=== PATIENT | male | born 1955 | race Caucasian/White ===

== ENCOUNTER 2020-02-11 11:26 | Outpatient (CLI) | payer OTHER, SELFPAY ==
--- NOTE | ~2020-02-11 | XR_ITS ---
EXAMINATION: XR_CERV2-3V_CR EXAM DATE: 02/11/2020 11:47 INDICATION: Headache, right shoulder pain, chronic. TECHNIQUE: Cervical spine frontal, lateral, lateral swimmers, and open-mouth odontoid projections. There is no prior study for comparison. FINDINGS: The vertebral bodies are aligned in the AP dimension. There is moderate disc disease C4-7. There is mild to moderate cervical arthropathy, with evidence of some neural foraminal stenosis at C 5-6 and 6-7. The odontoid process is intact. The lateral masses of C1 line up with C2. Prevertebral soft tissue and pre-dens space are within normal limits. IMPRESSION: 1. Moderate lower cervical disc disease. 2. Mild to moderate arthropathy. Reviewed, dictated and finalized at location A.
== END 2020-02-11 11:27 | disposition home or self-care (01) ==
LOC: ANHIMG 11:28
PROVIDERS: PCP Internal Medicine; Visit Provider Internal Medicine
DX: R51 Headache (principal); M25.511 Pain in right shoulder; G89.29 Other chronic pain; M50.321 Other cervical disc degeneration at C4-C5 level; M48.02 Spinal stenosis, cervical region
CPT/HCPCS: 72040

== ENCOUNTER 2020-02-12 10:03 | Outpatient (CLI) | payer OTHER, SELFPAY ==
--- NOTE | 2020-02-26 12:24 | WPDHOLTEREM ---
Holter/Event Monitor Holter/Event Monitor Date of procedure: 02/22/20 Procedure Type: 48 hour holter monitor Indications: Palpitations, HTN Conclusion: 1. 48 hours holter monitor on 02/22/20. 2. Underlying rhythm is sinus rhythm. HR range 49-113 bpm; average HR 69 bpm. 3. There are 6 premature supraventricular complexes and 1 supraventricular couplet. No supraventricular tachycardia. 4. There are 137 premature ventricular complexes and 148 ventricular bigeminy. No ventricular tachycardia. 5. No sinoatrial or atrioventricular blocks. No significant pauses greater than 2 seconds. 6. Patient reports symptoms of elevated heart rate which demonstrate sinus rhythm, HR range 63-71 bpm.
== END 2020-02-12 10:04 | disposition home or self-care (01) ==
PROVIDERS: PCP Internal Medicine; Visit Provider Internal Medicine
DX: R00.2 Palpitations (principal)
CPT/HCPCS: 93225; 93226

== ENCOUNTER 2020-05-23 02:35 | Outpatient (CLI) | payer OTHER, SELFPAY ==
[2020-05-23 18:57] LABS: SARS-CoV-2 RNA PCR Negative
== END 2020-05-23 02:36 | disposition home or self-care (01) ==
LOC: ANHCOVIDDT 02:36
PROVIDERS: PCP Internal Medicine; Visit Provider Internal Medicine Gastroenterology
DX: Z01.812 Encounter for preprocedural laboratory examination (principal); Z11.59 Encounter for screening for other viral diseases
CPT/HCPCS: 87635; C9803; U0003

== ENCOUNTER 2020-05-26 00:49 | Day surgery (SDC) | payer OTHER, SELFPAY ==
[2020-05-19 10:44] VITALS: BMI 26.1
[2020-05-26 06:23] VITALS: BMI 26.3
[2020-05-26] MEDS: LACTATED RINGERS 1,000 ML 150 ML IV CONT (06:34)
[2020-05-26 06:35] VITALS: BP 118/85; PULSE 67; RESP 16; TEMP 36.4; O2SAT 98
--- NOTE | 2020-05-26 06:58 | PM.HPGS ---
History of Present Illness History of Present Illness Consent: Risks, benefits, and alternatives have been discussed and questions answered. Patient agrees to proceed with procedure. Chief complaint: Neoplasm Screening/ Hx Colon Polyps Narrative: Domo Edward is a 65 year old W male For referred for screening colonoscopy secondary history of colonic polyps. However last colonoscopy only hyperplastic polyps were noted. There is no family history of colon polyps or colon cancer. The patient is asymptomatic. No previous surgical procedure. Patient is on no medications. Patient is a nonsmoker. [facility] Past Medical History Medical History Abnormal finding of blood chemistry, unspecified Anxiety BMI 26.0-26.9,adult BMI 27.0-27.9,adult Cervicalgia Colon cancer screening Encounter for preventive health examination Encounter for special screening examination for neoplasm of prostate Encounter to establish care Hx of colonic polyps Hyperlipidemia On jail drug therapy Palpitations Persistent headaches Right shoulder pain Tinnitus Family History Family History Mother Ovarian cancer Father Emphysema, unspecified Schizophrenia Social History Social History Smoking status: Former smoker Smoking end date: 10/17/84 Alcohol intake: current Gender identity (if verbalized by the patient): Male Meds Home Medications and Allergies Home Medications Medication Instructions Recorded Confirmed Type No Home Medications 05/19/20 History Allergies Allergy/AdvReac Type Severity Reaction Status Date / Time No Known Allergies Allergy Verified 05/26/20 06:21 Vital Signs Vital Signs - 24 hr 05/26/20 06:35 Temperature 36.4 C L Pulse Rate 67 Respiratory Rate 16 Blood Pressure 118/85 Pulse Oximetry 98 Exam Const: Orientation/consciousness: patient oriented x3 Resp: Auscultation: clear to auscultation bilaterally Cardio: Rate: regular rate Rhythm: regular rhythm Heart sounds: no murmurs GI: GI Palp: Yes Soft to palpation, No Tenderness to palpation present (GI), Yes No hepatosplenomegaly present and No Palpable mass present Auscultation: normal bowel sounds Neuro: General: patient oriented x3 and no focal motor deficits Extrem: General: no pedal edema Assessment and Plan Additional Plan Screening colonoscopy secondary history of colonic polyps
--- NOTE | 2020-05-26 07:06 | P.PNAN_ITS ---
Anes - Initial Pre Proc Eval Procedure: Operation Date: 05/26/20 07:30 Proposed Procedures p Screening Colonoscopy - Greg Cabral MD Date/Time: 05/26/20 07:06 Surgeon: Greg Cabral MD Pre Op Diagnosis: Neoplasm Screening/ Hx Colon Polyps Patient Data Age: 65 Gender: M Height: 5 ft 11 in Weight: 85.7 kg Last Vital Signs Temp 97.5 F L 05/26/20 06:35 Pulse 67 05/26/20 06:35 Resp 16 05/26/20 06:35 BP 118/85 05/26/20 06:35 Pulse Ox 98 05/26/20 06:35 Allergies Allergy/AdvReac Type Severity Reaction Status Date / Time No Known Allergies Allergy Verified 05/26/20 06:21 Home Medications Medication Instructions Recorded Confirmed Type No Home Medications 05/19/20 History Patient hx anesthesia problems: none Family hx anesthesia problems: none PMFSH Past Medical History Medical History Abnormal finding of blood chemistry, unspecified Anxiety BMI 26.0-26.9,adult BMI 27.0-27.9,adult Cervicalgia Colon cancer screening Encounter for preventive health examination Encounter for special screening examination for neoplasm of prostate Encounter to establish care Hx of colonic polyps Hyperlipidemia On intermediate drug therapy Palpitations Persistent headaches Right shoulder pain Tinnitus Family History Family History Mother Ovarian cancer Father Emphysema, unspecified Schizophrenia Social History Social History Smoking status: Former smoker Smoking end date: 10/17/84 Alcohol intake: current Gender identity (if verbalized by the patient): Male Anes - Eval Final PreProcedure Day of Procedure 05/26/20 07:06 Patient weight: overweight Heart: regular rate and rhythm Lungs: clear to auscultation Airway: Mallampati scale class II Neurological: alert and oriented Last oral intake: >/= 8 hours ASA classification: II Emergent: no Anesthetic plan: proceed Anesthesia type and monitoring: general GIVS and standard monitoring Informed Consent: The patient's anesthetic plan and its attendant risks and benefits were discussed with the patient/family/POA. Questions were solicited and answers provided to the satisfaction of the patient/family/POA.
[2020-05-26 07:44] VITALS: BP 99/61; PULSE 62; RESP 15; O2SAT 95
[2020-05-26 07:54] VITALS: BP 98/62; PULSE 62; RESP 14; O2SAT 96
[2020-05-26 08:04] VITALS: BP 108/63; PULSE 59; RESP 19; O2SAT 96
== END 2020-05-26 08:25 | disposition home or self-care (01) ==
PROVIDERS: PCP Internal Medicine; Visit Provider Internal Medicine Gastroenterology
PROC: 0DJD8ZZ Inspection of Lower Intestinal Tract, Via Natural or Artificial Opening Endoscopic (ICD-10-PCS; CPT 45378; principal; 2020-05-26 07:30)
DX: Z12.11 Encounter for screening for malignant neoplasm of colon (principal); K57.30 Diverticulosis of large intestine without perforation or abscess without bleeding; K64.8 Other hemorrhoids; Z86.010 Personal history of colon polyps; Z87.891 Personal history of nicotine dependence
CPT/HCPCS: G0105; 87635; C9803; J2704; J7120; U0003

== ENCOUNTER 2020-07-02 12:30 | Outpatient (CLI) | payer OTHER, SELFPAY ==
--- NOTE | ~2020-07-02 | CT_ITS ---
EXAMINATION: CT abdomen pelvis wo con DATE: 07/02/2020 14:04 INDICATION: Lower abdomen pain for days TECHNIQUE: Computed tomography (CT) of the abdomen and pelvis was performed without intravenous contr ast. The dose-length product was 490.65 mGy-cm. Automated exposure control and iterative reconstructi on technique were employed. COMPARISON: None. FINDINGS: Lung bases are unremarkable. Heart size normal. No significant pleural or pericardial effus ion. There are cardiophrenic angle lymph nodes on the left, largest measuring 1.6 cm, image 24. Gallstones. The liver, spleen, pancreas, adrenal glands and kidneys are unremarkable. Nonobstructive bowel gas pattern. Normal appendix. Prostate gland is enlarged. There is a punctate midline calcifica tion measuring 2 mm, image 183. Cannot exclude stone in the prostatic urethra. Bladder is unremarkabl e. Moderate lumbar spondylosis. Tiny fat-containing umbilical hernia. No significant vascular abnorma lity. IMPRESSION: 1. Possible 2 mm stone in the prostatic urethra. 2: Left cardiophrenic angle lymph nodes, likely reactive. 3: Cholelithiasis. Reviewed, dictated and finalized at location B.
[2020-07-02 12:51] LABS: Basophils Percent Auto 0.7 % (0.2-1.2); Eosinophils Absolute Auto 0.3 K/mm3 (0-0.3); Eosinophils Percent Auto 4.4 % (0-4.4); Hematocrit 42.7 % (42.0-52.0); Hemoglobin 14.7 g/dL (14.0-18.0); Immature Granulocyte Absolute 0.01 K/mm3 (0.00-0.031); Immature Granulocyte Percent A 0.2 % (0-0.5); Lymphocytes Absolute Auto 0.86 K/mm3 (0.9-3.2); Lymphocytes Percent Auto 14.7 % (18.3-44.2); Mean Corpuscular HGB Conc 34.4 g/dl (32-36); Mean Corpuscular Hemoglobin 31.8 pg (26-34); Mean Corpuscular Volume 92.4 fl (80-100); Mean Platelet Volume 8.1 fl (7.4-10.4); Monocytes Absolute Auto 0.6 K/mm3 (0.1-0.6); Monocytes Percent Auto 9.6 % (2.6-8.5); Neutrophils Absolute Auto 4.1 K/mm3 (1.3-6.7); Neutrophils Percent Auto 70.4 % (45.5-73.1); Platelet Count Result 233 k/mm3 (150-375); Red Blood Count 4.62 M/mm3 (4.6-6.20); Red Cell Distribution Width 12.4 % (11.5-14.5); White Blood Count 5.9 K/mm3 (4.5-10.0)
[2020-07-02 12:53] LABS: Add Urine Microscopic? NO; Appearance Urine Clear (Clear); Bilirubin Urine Negative (Negative); Blood Urine Negative (Negative); Color Urine Straw (Yellow); Glucose Urine UA Negative (Negative); Ketones Urine Negative (Negative); Leukocyte Esterase Ur Negative LEU/UL (NEGATIVE); Nitrate Urine Negative (Negative); Protein Urine Negative (Negative); Specific Grav Ur 1.008 (1.001-1.035); Urobilinogen Urine Negative mg/dL (<2.0)
[2020-07-02 13:06] LABS: Anion Gap 2 mmol/L (8-16); Blood Urea Nitrogen 13 mg/dL (9-20); Calcium 9.2 mg/dL (8.4-10.2); Carbon Dioxide 32 mmol/L (22-30); Chloride 100 mmol/L (98-107); Estimated Glomerular Filt Rate > 60; Glucose 90 mg/dL (75-110); Potassium 4.6 mmol/L (3.4-5.0); Sodium 134 mmol/L (137-145)
== END 2020-07-02 12:31 | disposition home or self-care (01) ==
PROVIDERS: PCP Internal Medicine; Visit Provider Internal Medicine
DX: R10.32 Left lower quadrant pain (principal); R30.0 Dysuria; R59.0 Localized enlarged lymph nodes; K80.20 Calculus of gallbladder without cholecystitis without obstruction
CPT/HCPCS: 36415; 74176; 80048; 81003; 85025; 87086

== ENCOUNTER → 2021-08-04 09:24 | Outpatient (CLI) | payer OTHER, SELFPAY ==
[2021-08-05 19:26] LABS: SARS-CoV-2 RNA PCR Negative
== END ==
PROVIDERS: PCP Internal Medicine; Visit Provider Internal Medicine
DX: Z20.822 Contact with and (suspected) exposure to COVID-19 (principal); R43.2 Parageusia
CPT/HCPCS: C9803; U0003; U0005

== ENCOUNTER → 2021-08-25 04:07 | Outpatient (CLI) | payer OTHER, SELFPAY ==
[2021-08-25 16:54] LABS: SARS-CoV-2 RNA PCR Negative
== END ==
PROVIDERS: PCP Internal Medicine; Visit Provider Internal Medicine
DX: R05.9 Cough, unspecified (principal); R43.2 Parageusia; Z20.822 Contact with and (suspected) exposure to COVID-19
CPT/HCPCS: C9803; U0003; U0005

== ENCOUNTER → 2021-10-13 02:33 | Outpatient (CLI) | payer OTHER, SELFPAY ==
[2021-10-14 03:58] LABS: SARS-CoV-2 RNA PCR Negative
== END ==
PROVIDERS: PCP Internal Medicine; Visit Provider Internal Medicine
DX: Z20.822 Contact with and (suspected) exposure to COVID-19 (principal)
CPT/HCPCS: C9803; U0003; U0005

== ENCOUNTER 2023-01-04 09:30 | Outpatient (CLI) | payer MEDICARE, OTHER, SELFPAY ==
--- NOTE | ~2023-01-04 | US_ITS ---
EXAMINATION: US soft tissue pelvic INDICATION: Lower abdominal pain TECHNIQUE: Targeted ultrasound is performed in the area of clinical concern. COMPARISON: None available FINDINGS: No sonographic correlate is identified for the patient's reported pain. No sonographically detected abnormality is seen. IMPRESSION: 1. No specific sonographic correlate is identified for the reported palpable abnormality of concern. Further evaluation at this time should be based on clinical assessment. Continued follow-up physical examination is recommended. Reviewed, dictated and finalized at location L. IMPRESSION: 1. No specific sonographic correlate is identified for the reported palpable ab normality of concern. Further evaluation at this time should be based on clinic al assessment. Continued follow-up physical examination is recommended.
--- NOTE | ~2023-01-04 | US_ITS ---
Limited Abdominal Sonogram: Real-time sonographic imaging of the right upper quadrant was performed. Clinical History: Abdominal pain Findings: The liver appears normal with no evidence of mass lesion or bile duct dilatation. Main por james vein demonstrates normal direction of flow. The gallbladder is completely filled with shadowing s tones. No definite gallbladder wall thickening. The common bile duct measures 3 mm. The visualized a srikanth is unremarkable. Pancreas obscured by bowel gas shadowing. Impression: Cholelithiasis. Reviewed, dictated and finalized at location M. Impression: Cholelithiasis.
== END 2023-01-04 09:31 ==
LOC: MICIMG 09:31
PROVIDERS: PCP Internal Medicine; Visit Provider Internal Medicine
DX: R10.9 Unspecified abdominal pain (principal); K80.20 Calculus of gallbladder without cholecystitis without obstruction
CPT/HCPCS: 76705; 76857

== ENCOUNTER 2023-01-07 07:47 | Outpatient (CLI) | payer MEDICARE, OTHER, SELFPAY ==
--- NOTE | ~2023-01-07 | NM_ITS ---
EXAMINATION: NM hepatobiliary wo pharm DATE: 01/07/2023 10:32 INDICATION: Gallstones COMPARISON: Ultrasound dated 01/04/2023 TECHNIQUE: 4.92 mCi Tc-99m mebrofenin (Choletec) was administered intravenously. Scintigraphic image s of the abdomen were obtained for one hour. At the 1 hour time point, the patient drank 8 oz Ensure, and imaging was continued for 60 minutes. Gallbladder ejection fraction was calculated by the techno logist. FINDINGS: There is normal clearance of radiotracer from the blood pool. There is homogeneous tracer u ptake by the liver. Activity progresses to the bowel and gallbladder. The gallbladder ejection fract ion (GBEF) is 93%. Note that with this technique, normal GBEF >= 33%. IMPRESSION: 1. Normal hepatobiliary scan Reviewed, dictated and finalized at location A.
== END 2023-01-07 07:48 | disposition home or self-care (01) ==
PROVIDERS: PCP Internal Medicine; Visit Provider Internal Medicine
DX: K80.20 Calculus of gallbladder without cholecystitis without obstruction (principal)
CPT/HCPCS: 78226; A9537

== ENCOUNTER 2023-01-27 14:21 | Outpatient (CLI) | payer MEDICARE, OTHER, SELFPAY ==
--- NOTE | ~2023-01-27 | CT_ITS ---
EXAMINATION: CT abdomen pelvis w con INDICATION: Right lower quadrant pain TECHNIQUE: Computed tomographic images of the abdomen and pelvis were obtained after the administrati on of 100 cc of Omnipaque 350 intravenous contrast. The dose-length product (DLP) was 455.07 mGy-cm. Automated exposure control and iterative reconstruction technique were employed. COMPARISON: 07/02/2020 FINDINGS: Minimal dependent atelectasis is present in the lung bases. The heart size is normal. Again noted are chronic lymph nodes at the left cardiophrenic angle. Stones are present in the nondistende d gallbladder. The liver, spleen, and adrenal glands are normal. There is a 7 mm cystic lesion in the body of the pancreas on image 45. Cysts of the kidneys measure up to 8 mm on the right. No pathologi pam enlarged abdominal or pelvic lymph nodes are identified. No free intraperitoneal gas or evidenc e of bowel obstruction. The appendix is normal. No pathologically enlarged abdominal or pelvic lymph nodes are identified. No free intraperitoneal gas or evidence of bowel obstruction. A moderate volume of colonic stool is present. There is an umbilical hernia containing fat. There is moderate to sever e lumbar spondylosis. IMPRESSION: 1. No CT correlate for the patient's symptoms. 2. Small cystic lesion in the body of the pancreas. The differential diagnosis includes pseudocyst, i ntraductal papillary mucinous neoplasm (IPMN), mucinous cystic neoplasm (MCN), and the less common se candy cystadenoma and neuroendocrine tumor. Correlate for history of pancreatitis. Follow-up pancreas protocol MRI or CT in one year is recommended. Reviewed, dictated and finalized at location F. IMPRESSION: 1. No CT correlate for the patient's symptoms. 2. Small cystic lesion in the body of the pancreas. The differential diagnosis includes pseudocyst, intraductal papillary mucinous neoplasm (IPMN), mucinous c ystic neoplasm (MCN), and the less common serous cystadenoma and neuroendocrine tumor. Correlate for history of pancreatitis. Follow-up pancreas protocol MRI or CT in one year is recommended.
[2023-01-27 14:52] LABS: Estimated Glomerular Filt Rate 60
== END 2023-01-27 14:22 | disposition home or self-care (01) ==
PROVIDERS: PCP Internal Medicine; Visit Provider Nurse Practitioner
DX: R10.31 Right lower quadrant pain (principal); K86.9 Disease of pancreas, unspecified
CPT/HCPCS: 74177; Q9967

== ENCOUNTER 2023-02-09 08:00 | Outpatient (CLI) | payer MEDICARE, OTHER, SELFPAY ==
--- NOTE | ~2023-02-09 | MR_ITS ---
EXAMINATION: MR MRCP wo/w con/w 3D wo ind DATE: 02/09/2023 09:06 INDICATION: Cystic lesion of the pancreas TECHNIQUE: Magnetic resonance imaging (MRI) of the abdomen was performed without and with intravenous contrast. Sequences included coronal T2-weighted SS-FSE ARC, coronal T2-weighted FS SS-FSE, coronal T2-weighted 2D FS FIESTA, Water:Coronal LAVA-Flex, sagittal T2-weighted SS-FSE ARC, axial SSFSE ARC, axial 3D DualEcho, axial DWI B=600, axial T1-weighted LAVA, FAT:Coronal LAVA-Flex, and coronal in and opposed phase LAVA-Flex. Thick-slab T2-weighted FRFSE-XL images were obtained for magnetic resonance cholangiopancreatography (MRCP). Maximum intensity projection 3-D reconstructions of the volumetric data were created by the technologist. Postcontrast sequences included a time course of axial T1-weig hted LAVA, FAT:Coronal LAVA-Flex, coronal in and opposed phase LAVA-Flex, and Water:Coronal LAVA-Flex . COMPARISON: CT, 01/27/2013 CONTRAST: Multihance, 17 cc FINDINGS: ABDOMEN MRI: There is a 10 mm x 8 mm cystic lesion in the body of the pancreas which appears to commu nicate with the main pancreatic duct. In addition, there are smaller cystic lesions in the tail of th e pancreas which measure 7 mm and 6 mm without definite main pancreatic duct communication. No defini te enhancement is identified in either breast lesions after contrast administration. Multiple stones are present in the nondistended gallbladder. The liver, spleen, and adrenal glands are unremarkable. Cysts of the kidneys measure up to 11 mm on the left. There are no pathologically enlarged abdominal lymph nodes. A large volume of colonic stool is present. There is a perihilar nodule of the right low er lobe. ABDOMEN MRCP: There is no intrahepatic or extrahepatic biliary dilatation. There are no biliary stone s or stricture. The pancreatic duct is normal in caliber. IMPRESSION: 1. Cystic lesions of the pancreas as described above with differential as previously discussed. Follo w-up pancreas protocol CT or MRI in one year is recommended. 2. Indeterminate perihilar nodule of the right lower lobe. Dedicated CT of the chest is recommended. 3. Cholelithiasis without evidence of cholecystitis. Reviewed, dictated and finalized at location B. IMPRESSION: 1. Cystic lesions of the pancreas as described above with differential as previ ously discussed. Follow-up pancreas protocol CT or MRI in one year is recommend ed. 2. Indeterminate perihilar nodule of the right lower lobe. Dedicated CT of the chest is recommended. 3. Cholelithiasis without evidence of cholecystitis.
== END 2023-02-09 08:01 | disposition home or self-care (01) ==
LOC: ANHIMG 08:02
PROVIDERS: PCP Internal Medicine; Visit Provider Nurse Practitioner
DX: K86.2 Cyst of pancreas (principal); R91.1 Solitary pulmonary nodule; K80.20 Calculus of gallbladder without cholecystitis without obstruction
CPT/HCPCS: 74183; 76376; A9577

== ENCOUNTER 2023-02-16 00:50 | Day surgery (SDC) | payer MEDICARE, OTHER, SELFPAY ==
[2023-02-03 10:29] VITALS: BMI 25.9
--- NOTE | 2023-02-15 16:54 | PM.HPGS ---
History of Present Illness History of Present Illness Consent: Risks, benefits, and alternatives have been discussed and questions answered. Patient agrees to proceed with procedure. Chief complaint: belching, altered bowel habit Narrative: Domo Edward is a 67 year old male was referred for endoscopy because of persistent belching. For several weeks he has had abdominal bloating, indigestion as well as the burping. He cut out coffee. He noticed that complex carbohydrates like made goes make his symptoms worse. He has had some lower abdominal cramping. Recently he was given prescriptions for possible diverticulitis which did not help. Testing was done for celiac disease which was negative. He did have an ultrasound of the upper abdomen that showed gallstones but HIDA scan revealed a normal ejection fraction. He also has history of colon polyps. He had a polyp removed in 2013. A colonoscopy in 2017 to investigate rectal bleeding was remarkable for small internal hemorrhoids and a small tubular adenoma. His last colonoscopy which was 3 years ago was unremarkable. Review of Systems Review of Systems: All systems reviewed & are unremarkable except as noted in HPI and below PMFSH Past Medical History Medical History Abdominal distension Abdominal pain Abnormal finding of blood chemistry, unspecified Altered taste Anxiety Belching BMI 25.0-25.9,adult Cervicalgia Change in bowel habits Change in stool caliber Colon cancer screening Cough Diverticulosis DJD of both shoulders Dysuria Encounter for preventive health examination Encounter for routine adult health examination with abnormal findings Encounter for special screening examination for neoplasm of prostate Exposure to COVID-19 virus Follow up Gallstones Hx of adenomatous colonic polyps Hx of colonic polyps Hyperlipidemia Indigestion Kidney stone Left shoulder pain On [employer] drug therapy Palpitations Pancreatic cyst Persistent headaches Right shoulder pain Swelling of finger of right hand Tinnitus Umbilical hernia Vertigo Family History Family History Mother Ovarian cancer Father Emphysema, unspecified Schizophrenia Social History Social History Smoking packs per day: 0.5 Smoking cigarettes per day: 10.0 Years smoked: 10 Smoking pack-years: 5.00 Smoking status: Former smoker Tobacco type: cigarettes Second hand tobacco smoke exposure: No Smoking end date: 10/17/84 Alcohol intake: current Lack of Transportation: No Lack of Food: Never True Current Housing: I Have Housing Concerned About Future Housing: No Difficulty Paying Gas/Electric Bills: No Difficulty Paying for Meds: No Currently Unemployed: No Education: Bachelor's Degree Difficulty w/ Childcare or Family Care: No Living arrangements: with family Gender identity (if verbalized by the patient): Male Spiritual care concerns: No Meds Home Medications and Allergies Home Medications Medication Instructions Recorded Confirmed Type fish oil 1 cap BYMOUTH DAILY 12/30/22 02/16/23 History multivitamin (One Daily 1 tablet PO DAILY 12/30/22 02/07/23 History Multivitamin tablet) Allergies Allergy/AdvReac Type Severity Reaction Status Date / Time ciprofloxacin Allergy Intermediate Itching Verified 02/16/23 09:20 Exam Const: General: alert Orientation/consciousness: patient oriented x3 Resp: Auscultation: clear to auscultation bilaterally Cardio: Rhythm: regular rhythm GI: GI Palp: Yes Soft to palpation and No Tenderness to palpation present (GI) Neuro: General: patient oriented x3 Assessment and Plan Assessment and plan (1) Colon cancer screening: Code(s): Z12.11 - Encounter for screening for malignant neoplasm of colon Status: Acute Assess
--- NOTE | 2023-02-16 07:39 | WPDANESEPPF ---
Anes - Initial Pre Proc Eval Procedure: Operation Date: 02/16/23 10:45 Proposed Procedures p Esophagogastroduodenoscopy & Colonoscopy - Frederic Snider MD Date/Time: 02/16/23 07:39 Surgeon: Frederic Snider MD Pre Op Diagnosis: belching, altered bowel habit Patient Data Age: 67 Gender: M Height: 1.78 m Weight: 82 kg Allergies Allergy/AdvReac Type Severity Reaction Status Date / Time ciprofloxacin Allergy Intermediate Itching Verified 02/16/23 09:20 Home Medications Medication Instructions Recorded Confirmed Type fish oil 1 cap BYMOUTH DAILY 12/30/22 02/16/23 History multivitamin (One Daily 1 tablet PO DAILY 12/30/22 02/07/23 History Multivitamin tablet) Patient hx anesthesia problems: none Family hx anesthesia problems: none Results Review: All pre-operative results and documents have been reviewed as part of the pre-operative evaluation. [facility] Past Medical History Medical History (Updated 02/07/23 @ 07:25 by Iliana Cruz CMA) Abdominal distension Abdominal pain Abnormal finding of blood chemistry, unspecified Altered taste Anxiety Belching BMI 25.0-25.9,adult Cervicalgia Change in bowel habits Change in stool caliber Colon cancer screening Cough Diverticulosis DJD of both shoulders Dysuria Encounter for preventive health examination Encounter for routine adult health examination with abnormal findings Encounter for special screening examination for neoplasm of prostate Exposure to COVID-19 virus Follow up Gallstones Hx of adenomatous colonic polyps Hx of colonic polyps Hyperlipidemia Indigestion Kidney stone Left shoulder pain On [facility] drug therapy Palpitations Pancreatic cyst Persistent headaches Right shoulder pain Swelling of finger of right hand Tinnitus Umbilical hernia Vertigo Family History Family History Mother Ovarian cancer Father Emphysema, unspecified Schizophrenia Social History Social History Smoking packs per day: 0.5 Smoking cigarettes per day: 10.0 Years smoked: 10 Smoking pack-years: 5.00 Smoking status: Former smoker Tobacco type: cigarettes Second hand tobacco smoke exposure: No Smoking end date: 10/17/84 Alcohol intake: current Lack of Transportation: No Lack of Food: Never True Current Housing: I Have Housing Concerned About Future Housing: No Difficulty Paying Gas/Electric Bills: No Difficulty Paying for Meds: No Currently Unemployed: No Education: Bachelor's Degree Difficulty w/ Childcare or Family Care: No Living arrangements: with family Gender identity (if verbalized by the patient): Male Spiritual care concerns: No Anes - Eval Final PreProcedure Day of Procedure 02/16/23 07:39 Patient weight: overweight Heart: regular rate and rhythm Lungs: clear to auscultation Airway: Mallampati scale class II Neurological: alert and oriented Last oral intake: >/= 8 hours ASA classification: II Emergent: no Anesthetic plan: proceed Anesthesia type and monitoring: general GIVS and standard monitoring Results Review: All pre-operative results and documents have been reviewed as part of the pre-operative evaluation. Informed Consent: The patient's anesthetic plan and its attendant risks and benefits were discussed with the patient/family/POA. Questions were solicited and answers provided to the satisfaction of the patient/family/POA.
[2023-02-16 09:22] VITALS: BP 129/79; PULSE 64; RESP 18; TEMP 36.1; O2SAT 98
[2023-02-16] MEDS: LACTATED RINGERS 1,000 ML 150 ML IV CONT (09:32)
--- NOTE | 2023-02-16 10:12 | SUR.OPER ---
EGD START: 950; END: 953. COLONOSCOPY START: 958; END: 1010.
[2023-02-16 10:13] VITALS: BP 90/59; PULSE 53; RESP 14; O2SAT 97
[2023-02-16 10:23] VITALS: BP 96/62; PULSE 58; RESP 20; O2SAT 97
[2023-02-16 10:33] VITALS: BP 104/71; PULSE 50; RESP 17; O2SAT 99
== END 2023-02-16 10:50 | disposition home or self-care (01) ==
PROVIDERS: PCP Internal Medicine; Visit Provider Internal Medicine Gastroenterology
PROC: 0DJ08ZZ Inspection of Upper Intestinal Tract, Via Natural or Artificial Opening Endoscopic (ICD-10-PCS; CPT 43235; principal; 2023-02-16 10:45)
DX: Z12.11 Encounter for screening for malignant neoplasm of colon (principal); K57.30 Diverticulosis of large intestine without perforation or abscess without bleeding; K64.8 Other hemorrhoids; Z86.010 Personal history of colon polyps; R19.4 Change in bowel habit; K29.70 Gastritis, unspecified, without bleeding; Z87.891 Personal history of nicotine dependence
CPT/HCPCS: 43239; G0105; 87081; J2704; J7120

== ENCOUNTER 2023-09-10 16:21 | Emergency (ER) | payer MEDICARE, OTHER, SELFPAY ==
[2023-09-10 16:30] VITALS: BP 127/84; PULSE 72; RESP 16; TEMP 36.8; O2SAT 98
--- NOTE | 2023-09-10 16:33 | ED.WOUNDLAC ---
HPI - Wound/Laceration General Chief Complaint: Wound/Laceration Stated Complaint: right finger laceration Time Seen by Provider: 09/10/23 16:33 Source: patient, RN notes reviewed and old records reviewed Mode of arrival: ambulatory Limitations: no limitations History of Present Illness HPI narrative: [age] year presents to the [facility] with complaints a laceration/flap/partial avulsion to the tip of the right finger. Unknown last Tdap Bleeding controlled Ocpok-gaey-pneiezyi Onset (ago): minute(s) (30) Patient tetanus UTD: No Related Data Home Medications Medication Instructions Recorded Confirmed fish oil 1 cap BYMOUTH DAILY 12/30/22 09/10/23 multivitamin (One Daily 1 tablet PO DAILY 12/30/22 09/10/23 Multivitamin tablet) Allergies Allergy/AdvReac Type Severity Reaction Status Date / Time ciprofloxacin Allergy Intermediate Itching Verified 09/10/23 16:40 Review of Systems Review of Systems: All systems reviewed & are unremarkable except as noted in HPI and below Constitutional: Constitutional: Reports no additional constitutional complaints Eyes: Eyes: Reports no additional eye complaints ENT: Reports system reviewed and no additional complaints, except as documented Cardiovascular: Cardiovascular: Reports no additional cardiovascular complaints, Denies chest pain and Denies dyspnea Respiratory: Respiratory: Reports no additional respiratory complaints, Denies chest congestion, Denies cough and Denies dyspnea Gastrointestinal: Gastrointestinal: Reports no additional gastrointestinal complaints, Denies abdominal pain, Denies nausea and Denies vomiting Musculoskeletal: Musculoskeletal: Reports no additional musculoskeletal complaints Integumentary/Breasts: Skin/Breast: Reports as per HPI and Reports wounds Neurologic: Reports system reviewed and no additional complaints, except as documented Psychiatric: Psychiatric: Reports no additional psychiatric complaints Allergic/Immunologic: Allergic/Immunologic: Reports no additional allergic/immunologic complaints [facility] Past Medical History Medical History Abdominal distension Abdominal pain Abnormal finding of blood chemistry, unspecified Altered taste Anxiety Belching BMI 25.0-25.9,adult Cervicalgia Change in bowel habits Change in stool caliber Colon cancer screening Cough Diverticulosis DJD of both shoulders Dysuria Encounter for preventive health examination Encounter for routine adult health examination with abnormal findings Encounter for special screening examination for neoplasm of prostate Exposure to COVID-19 virus Follow up Gallstones Hx of adenomatous colonic polyps Hx of colonic polyps Hyperlipidemia Indigestion Kidney stone Left shoulder pain On alf drug therapy Palpitations Pancreatic cyst Persistent headaches Right shoulder pain Swelling of finger of right hand Tinnitus Umbilical hernia Vertigo Family History Family History Mother Ovarian cancer Father Emphysema, unspecified Schizophrenia Social History Social History Smoking packs per day: 0.5 Smoking cigarettes per day: 10.0 Years smoked: 10 Smoking pack-years: 5.00 Smoking status: Former smoker Tobacco type: cigarettes Second hand tobacco smoke exposure: No Smoking end date: 10/17/84 Alcohol intake: current Lack of Transportation: No Lack of Food: Never True Current Housing: I Have Housing Concerned About Future Housing: No Difficulty Paying Gas/Electric Bills: No Difficulty Paying for Meds: No Currently Unemployed: No Education: Bachelor's Degree Difficulty w/ Childcare or Family Care: No Living arrangements: with family Gender identity (if verbalized by the patient): Male Spiritual care concerns: No Comments At the time of my signatu
[2023-09-10] MEDS: TETANUS,DIPHTHERIA,AC PERTUSSIS ADULT (0.5 ML) BOOSTRIX IM (16:59)
== END 2023-09-10 17:15 | disposition home or self-care (01) ==
PROVIDERS: Emergency Provider Nurse Practitioner; PCP Internal Medicine
DX: S61.210A Laceration without foreign body of right index finger without damage to nail, initial encounter (principal); Z87.891 Personal history of nicotine dependence; Z23 Encounter for immunization; W45.8XXA Other foreign body or object entering through skin, initial encounter
CPT/HCPCS: 12001; 90471; 90715; 99213; G0463

== ENCOUNTER 2024-02-08 06:41 | Outpatient (CLI) | payer MEDICARE, OTHER, SELFPAY ==
--- NOTE | ~2024-02-08 | MR_ITS ---
EXAMINATION: MR MRCP wo/w con/w 3D wo ind DATE: 02/08/2024 08:04 INDICATION: Pancreatic cyst. Nausea. Bloating. TECHNIQUE: Magnetic resonance imaging (MRI) of the abdomen was performed without and with 15 mL Multi Donal intravenous contrast. Sequences included coronal T2-weighted FS FSE, coronal T2-weighted FSE, a xial T1-weighted LAVA, coronal FS FIESTA, axial dual-echo T1-weighted SPGR, coronal lava-FLEX, sagitt al T2-weighted FSE, axial T2-weighted FSE, and axial DWI. Thick-slab T2-weighted FSE images were obta ined for magnetic resonance cholangiopancreatography (MRCP). Maximum intensity projection 3-D reconst ructions of the volumetric data were created by the technologist. Postcontrast sequences included cor onal LAVA-flex and time course of axial T1-weighted LAVA. COMPARISON: MRCP 02/09/2023 FINDINGS: ABDOMEN MRI: The liver is normal. There are gallstones in the gallbladder, which is normal in size. T he spleen and adrenal glands are normal. There are 4 cystic lesions in the pancreas measuring up to 1 2 mm. There are cysts in the kidneys measuring up to 11 mm on the right. There are no dilated loops o f bowel. There are no pathologically enlarged lymph nodes. There is no free intraperitoneal fluid. ABDOMEN MRCP: The common duct is normal and measures 4 mm. No choledocholithiasis. IMPRESSION: 1. Four low-risk cystic lesions of the pancreas measuring up to 12 mm, stable from 02/09/2023. The dif ferential diagnosis includes pseudocyst, intraductal papillary mucinous neoplasm (IPMN), mucinous cys tic neoplasm (MCN), serous cystadenoma, and neuroendocrine tumor. Abdomen MRI without and with contra st is recommended in 2 years. 2. Cholelithiasis. No evidence of acute cholecystitis. Reviewed, dictated and finalized at location E. IMPRESSION: 1. Four low-risk cystic lesions of the pancreas measuring up to 12 mm, stable f rom 02/09/2023. The differential diagnosis includes pseudocyst, intraductal ara llary mucinous neoplasm (IPMN), mucinous cystic neoplasm (MCN), serous cystaden rm, and neuroendocrine tumor. Abdomen MRI without and with contrast is recomme nded in 2 years. 2. Cholelithiasis. No evidence of acute cholecystitis.
== END 2024-02-08 06:42 | disposition home or self-care (01) ==
PROVIDERS: PCP Internal Medicine; Visit Provider Nurse Practitioner
DX: K86.2 Cyst of pancreas (principal); K80.20 Calculus of gallbladder without cholecystitis without obstruction
CPT/HCPCS: 74183; 76376; A9577

== ENCOUNTER 2024-03-20 08:18 | Outpatient (CLI) | payer MEDICARE, OTHER, SELFPAY ==
--- NOTE | ~2024-03-20 | CT_ITS ---
CT Scan of the Chest without Contrast: Clinical Indication: Pulmonary nodule Technique: Contiguous sections were acquired throughout the chest without intravenous contrast. Dose reduction technique was used on this scan by utilizing automated exposure control and iterative recon struction technique. The dose-length product (DLP) was 92.38 mGy-cm. Findings: There is mediastinal lymphadenopathy, largest node likely in the precarinal region measuring 2.4 x 1. 3 cm in size. Multiple additional mildly enlarged lymph nodes are present. No aortic aneurysm. There is no evidence of pleural or pericardial effusion. 5 mm right upper lobe pulmonary nodule noted (axial image 44 and 45). Images through the upper abdomen reveal small gallstones. Impression: 5 mm right upper lobe pulmonary nodule. According to Fleischner Society criteria, for a low-risk mathew ent, no further follow-up required. For a high-risk patient, consider 12 month follow-up CT. Mediastinal lymphadenopathy, as detailed above, nonspecific. Findings could reflect inflammatory/reac tive lymph nodes versus the possibility of lymphoma or other metastatic disease. Correlate clinically . Comparison with any prior chest CTs would be useful to assess for chronicity of these nodes. Otherw ise, consider follow-up exam and/or tissue sampling as indicated. Reviewed, dictated and finalized at location M. Impression: 5 mm right upper lobe pulmonary nodule. According to Fleischner Society criteri a, for a low-risk patient, no further follow-up required. For a high-risk patie nt, consider 12 month follow-up CT. Mediastinal lymphadenopathy, as detailed above, nonspecific. Findings could ref lect inflammatory/reactive lymph nodes versus the possibility of lymphoma or ot her metastatic disease. Correlate clinically. Comparison with any prior chest C Ts would be useful to assess for chronicity of these nodes. Otherwise, consider follow-up exam and/or tissue sampling as indicated.
== END 2024-03-20 08:19 ==
LOC: GOSHIMG 08:19
PROVIDERS: PCP Internal Medicine; Visit Provider Internal Medicine
DX: R91.1 Solitary pulmonary nodule (principal); R59.0 Localized enlarged lymph nodes
CPT/HCPCS: 71250